=== PATIENT | female | born 1945 | race African-American/Black ===

== ENCOUNTER 2017-07-30 15:21 | Inpatient (IN) ==
[2017-07-30] MEDS ORDERED: ASPIRIN PO STA (15:28)
[2017-07-30 16:39] LABS: ALLEN TEST YES; BE 3.9 mmoll (-3.0-3.0); BLOOD TYPE ARTERIAL; DRAW SITE R BRACHIAL; METHB 0.6 % (0.0-1.5); O2(CT) 11.7 mL/dL (15.0-23.0); PCO2(98.6) 36 mmHg (35-45); PO2(98.6) 75 mmHg (60-100); SAMPLE BLOOD; SAO2 97.7 % (95.0-100.0); THB 8.7 g/dL (11.5-17.4); pH(98.6) 7.49 (7.35-7.45)
[2017-07-30 16:40] LABS: MODALITY ROOM AIR
[2017-07-30 17:36] LABS: INR 1.18; PROTIME 12.5 Seconds (9.2-11.7); PTT 28.1 Seconds (22.0-36.0)
[2017-07-30 17:52] LABS: CALCIUM 8.6 mg/dL (8.8-10.2); MAGNESIUM 1.8 mg/dL (1.5-2.7); POTASSIUM 4.8 mmol/L (3.5-5.1); TOTAL BILIRUBIN 0.95 mg/dL (0.20-1.00); TOTAL PROTEIN 6.9 g/dL (6.3-8.3)
[2017-07-30 18:06] LABS: BASO% 0.4 % (0.0-0.8); EOS# 0.02 X1000 (0.0-0.7); EOS% 0.4 % (0.0-10.0); HEMATOCRIT 25.9 % (37.0-47.0); HEMOGLOBIN 8.4 g/dL (12.0-16.0); LYMPH# 0.91 X1000 (1.2-3.4); LYMPH% 16.2 % (20.5-51.1); MANUAL DIFF NEEDED? NO; MCH 28.6 PG (27-31); MCHC 32.4 g/dL (33-37); MCV 88.1 FL (81-99); MONO# 0.54 X1000 (0.11-0.59); MONO% 9.6 % (1.7-9.3); MPV 10.8 FL (7.4-10.4); NEUT% 73.4 % (42.2-75.2); PLT 213 X1000 (130-400); RBC 2.94 XMIL (4.2-5.4)
[2017-07-30] MEDS ORDERED: LASIX IV ONE (19:22)
[2017-07-30] MEDS ORDERED: HEPARIN 25,000 UNITS/D5W 25,000 UNIT/250 ML IV.SOLN IV SCH (21:45)
[2017-07-30 21:59] LABS: URINE CULTURE NEEDED? NO; URINE MICRO REVIEW NEEDED? NO; URINE SOURCE CATH
[2017-07-30 22:01] LABS: BILIRUBIN URINE NEGATIVE (NEGATIVE); BLOOD URINE NEGATIVE (NEGATIVE); COLOR YELLOW; GLUCOSE URINE NEGATIVE (NEGATIVE); LEUKOCYTES URINE NEGATIVE (NEGATIVE); NITRITE URINE NEGATIVE (NEGATIVE); PROTEIN URINE NEGATIVE (NEGATIVE); TURBIDITY URINE HAZY (CLEAR); UROBILINOGEN URINE NORMAL (NORMAL)
[2017-07-30 22:02] LABS: UR EPITHELIAL CELLS <10 /HPF (<10); URINE BACTERIA NEGATIVE /HPF; URINE RBC <10 /HPF (<10); URINE WBC <10 /HPF (<10)
[2017-07-30] MEDS ORDERED: ASPIRIN PO ONE (22:20)
[2017-07-31 08:42] LABS: HEMATOCRIT 22.7 % (37.0-47.0); HEMOGLOBIN 7.4 g/dL (12.0-16.0); MCH 28.9 PG (27-31); MCHC 32.6 g/dL (33-37); MCV 88.7 FL (81-99); MPV 10.1 FL (7.4-10.4); RBC 2.56 XMIL (4.2-5.4)
[2017-07-31] MEDS ORDERED: LASIX IV SCH (09:00)
[2017-07-31 09:04] LABS: ALBUMIN 2.9 g/dL (3.5-5.0); CALCIUM 8.3 mg/dL (8.8-10.2)
[2017-07-31 09:32] LABS: IRON SATURATION 24 %; TIBC 156 ug/dL; TOTAL IRON 38 ug/dL (49-151); UNBOUND IRON 118 ug/dL (112-346)
[2017-07-31 09:36] LABS: RETIC% 2.62 % (0.8-2.1); RETIC-HE 29.7 PG (28.2-36.6)
[2017-07-31] MEDS: SODIUM CHLORIDE 0.9% INJ SCH (10:50)
[2017-07-31] MEDS: PROTONIX IV SCH (10:50)
[2017-07-31 12:08] LABS: FERRITIN 2680 ng/mL (13-150)
[2017-07-31 12:44] LABS: INR 1.16; PROTIME 12.3 Seconds (9.2-11.7)
[2017-07-31 12:46] LABS: PTT 69.5 Seconds (22.0-36.0)
[2017-07-31 13:56] LABS: UR CREAT RANDOM 128.5 mg/dL (11-20); UR PROT RANDOM 22.2 mg/dL
[2017-07-31] MEDS ORDERED: NORCO-5 PO PRN (14:15)
[2017-07-31] MEDS ORDERED: DULCOLAX PR ONE (14:16)
[2017-07-31] MEDS ORDERED: LACTULOSE PO ONE (14:17)
[2017-07-31] MEDS: LASIX 100 MG in NS 90 ML IV SCH (14:42)
[2017-07-31] MEDS: DILAUDID IV PRN ×2 (16:24→20:13)
[2017-07-31] MEDS: LACTULOSE PO SCH (20:11)
[2017-07-31] MEDS ORDERED: NS 500 ML ONE (21:53)
[2017-07-31] MEDS: ZOFRAN IV PRN (23:16)
[2017-08-01 05:21] LABS: HEMATOCRIT 25.4 % (37.0-47.0); HEMOGLOBIN 8.2 g/dL (12.0-16.0); MCH 29.5 PG (27-31); MCHC 32.3 g/dL (33-37); MCV 91.4 FL (81-99); MPV 10.9 FL (7.4-10.4); RBC 2.78 XMIL (4.2-5.4)
[2017-08-01 05:41] LABS: FREE T4 1.53 ng/dL (0.93-1.70)
[2017-08-01 05:42] LABS: ALBUMIN 3.2 g/dL (3.5-5.0); CALCIUM 8.4 mg/dL (8.8-10.2); POTASSIUM 5.8 mmol/L (3.5-5.1)
[2017-08-01] MEDS: DILAUDID IV PRN (06:16)
[2017-08-01] MEDS: ZOFRAN IV PRN (06:19)
[2017-08-01] MEDS ORDERED: XANAX PO SCH (09:00)
[2017-08-01] MEDS ORDERED: VITAMIN D PO SCH (09:00)
[2017-08-01 09:38] LABS: INR 1.13; PTT 25.2 Seconds (22.0-36.0)
[2017-08-01] MEDS: LACTULOSE PO SCH (11:09)
[2017-08-01] MEDS ORDERED: ALBUMIN 25% IV ONE (11:21)
[2017-08-01] MEDS: PROTONIX IV SCH (13:23)
[2017-08-01] MEDS: LASIX 100 MG in NS 90 ML IV SCH (13:23)
[2017-08-01 14:00] LABS: CALCIUM 8.2 mg/dL (8.8-10.2); POTASSIUM 5.6 mmol/L (3.5-5.1)
[2017-08-01] MEDS: DOBUTAMINE 500/D5W 500 MG/250 ML IV.SOLN IV SCH (14:43)
[2017-08-02 05:25] LABS: HEMATOCRIT 18.7 % (37.0-47.0); MCH 29.1 PG (27-31); MCHC 32.1 g/dL (33-37); MCV 90.8 FL (81-99); MPV 10.3 FL (7.4-10.4); RBC 2.06 XMIL (4.2-5.4)
[2017-08-02 05:40] LABS: ALBUMIN 3.1 g/dL (3.5-5.0); CALCIUM 7.6 mg/dL (8.8-10.2); DIRECT BILIRUBIN 0.3 mg/dL (0.00-0.20); POTASSIUM 4.5 mmol/L (3.5-5.1); TOTAL BILIRUBIN 0.87 mg/dL (0.20-1.00); TOTAL PROTEIN 5.9 g/dL (6.3-8.3)
[2017-08-02] MEDS: PROTONIX IV SCH (09:19)
[2017-08-02] MEDS: SODIUM CHLORIDE 0.9% INJ SCH (09:19)
[2017-08-02] MEDS ORDERED: NS 500 ML ONE (12:00)
[2017-08-02] MEDS: DOBUTAMINE 500/D5W 500 MG/250 ML IV.SOLN IV SCH (18:30)
[2017-08-03] MEDS: XANAX PO PRN ×2 (02:55→20:55)
[2017-08-03 05:18] LABS: HEMATOCRIT 22.9 % (37.0-47.0); HEMOGLOBIN 7.6 g/dL (12.0-16.0); MCH 29.9 PG (27-31); MCHC 33.2 g/dL (33-37); MCV 90.2 FL (81-99); MPV 9.7 FL (7.4-10.4); RBC 2.54 XMIL (4.2-5.4)
[2017-08-03 05:33] LABS: ALBUMIN 2.9 g/dL (3.5-5.0); CALCIUM 7.8 mg/dL (8.8-10.2); POTASSIUM 4.3 mmol/L (3.5-5.1)
[2017-08-03] MEDS: PROTONIX IV SCH (08:26)
[2017-08-03] MEDS: DOBUTAMINE 500/D5W 500 MG/250 ML IV.SOLN IV SCH (15:21)
[2017-08-03] MEDS: LOVENOX SUBQ SCH (20:55)
[2017-08-04 05:06] LABS: MANUAL DIFF NEEDED? NO
[2017-08-04 05:24] LABS: BASO% 0.2 % (0.0-0.8); EOS# 0.05 X1000 (0.0-0.7); EOS% 0.8 % (0.0-10.0); HEMATOCRIT 24.7 % (37.0-47.0); HEMOGLOBIN 7.9 g/dL (12.0-16.0); LYMPH# 0.94 X1000 (1.2-3.4); LYMPH% 15.2 % (20.5-51.1); MCH 28.9 PG (27-31); MCV 90.5 FL (81-99); MONO% 12.9 % (1.7-9.3); MPV 9.8 FL (7.4-10.4); NEUT% 70.9 % (42.2-75.2); PLT 268 X1000 (130-400); RBC 2.73 XMIL (4.2-5.4)
[2017-08-04 05:39] LABS: ALBUMIN 2.9 g/dL (3.5-5.0); CALCIUM 7.7 mg/dL (8.8-10.2); POTASSIUM 4.2 mmol/L (3.5-5.1)
[2017-08-04] MEDS: SODIUM CHLORIDE 0.9% INJ SCH (09:25)
[2017-08-04] MEDS: PROTONIX IV SCH (09:25)
[2017-08-04] MEDS: MIRALAX PO SCH ×2 (14:04→20:41)
[2017-08-04] MEDS: DULCOLAX PR SCH ×2 (20:41→20:45)
[2017-08-04] MEDS: LOVENOX SUBQ SCH (20:41)
[2017-08-05 05:18] LABS: MANUAL DIFF NEEDED? NO
[2017-08-05 05:37] LABS: BASO% 0.2 % (0.0-0.8); EOS# 0.08 X1000 (0.0-0.7); EOS% 1.3 % (0.0-10.0); HEMATOCRIT 26.4 % (37.0-47.0); HEMOGLOBIN 8.3 g/dL (12.0-16.0); IMM GRAN# 0.02 X1000 (0.0-0.04); IMM GRAN% 0.3 % (0.0-0.5); LYMPH# 0.66 X1000 (1.2-3.4); MCH 28.8 PG (27-31); MCHC 31.4 g/dL (33-37); MCV 91.7 FL (81-99); MONO# 0.54 X1000 (0.11-0.59); NEUT% 78.2 % (42.2-75.2); PLT 288 X1000 (130-400); RBC 2.88 XMIL (4.2-5.4)
[2017-08-05 05:42] LABS: CALCIUM 8.4 mg/dL (8.8-10.2); POTASSIUM 4.4 mmol/L (3.5-5.1)
[2017-08-05] MEDS: PROTONIX IV SCH (09:13)
[2017-08-05] MEDS: LACTULOSE PO SCH ×2 (09:15→21:53)
[2017-08-05] MEDS: MIRALAX PO SCH ×2 (09:15→21:53)
[2017-08-05] MEDS: LOVENOX SUBQ SCH (21:53)
[2017-08-05] MEDS: DULCOLAX PR SCH (21:53)
[2017-08-06 06:31] LABS: HEMATOCRIT 26.7 % (37.0-47.0); HEMOGLOBIN 8.3 g/dL (12.0-16.0); MCH 29.5 PG (27-31); MCHC 31.1 g/dL (33-37); MPV 9.9 FL (7.4-10.4); RBC 2.81 XMIL (4.2-5.4)
[2017-08-06 06:37] LABS: CALCIUM 7.7 mg/dL (8.8-10.2); POTASSIUM 4.5 mmol/L (3.5-5.1)
[2017-08-06] MEDS: SODIUM CHLORIDE 0.9% INJ SCH (08:24)
[2017-08-06] MEDS: PROTONIX IV SCH (08:24)
[2017-08-06] MEDS: LACTULOSE PO SCH (08:25)
[2017-08-06] MEDS: MIRALAX PO SCH (08:26)
[2017-08-06] MEDS: LOVENOX SUBQ SCH (22:57)
[2017-08-06] MEDS: DULCOLAX PR SCH (22:58)
[2017-08-07 06:21] LABS: HEMATOCRIT 28.4 % (37.0-47.0); HEMOGLOBIN 8.9 g/dL (12.0-16.0); MCH 29.9 PG (27-31); MCHC 31.3 g/dL (33-37); MCV 95.3 FL (81-99); MPV 9.8 FL (7.4-10.4); RBC 2.98 XMIL (4.2-5.4)
[2017-08-07 06:34] LABS: CALCIUM 8.7 mg/dL (8.8-10.2); POTASSIUM 4.3 mmol/L (3.5-5.1)
[2017-08-07] MEDS: PROTONIX IV SCH (09:15)
[2017-08-07 19:31] VITALS: BP 112/75
[2017-08-08] MEDS ORDERED: TOPROL XL PO SCH (09:00)
[2017-08-08] MEDS ORDERED: LASIX PO SCH (09:00)
== END 2017-08-07 20:26 | disposition home health service (06) ==
LOC: ED 15:21 → 3N 22:42 → SUATTDRO 22:42 → 3N 23:07 → 3S 07-31 13:46 → 4N 08-05 13:27
PROVIDERS: ATTEND Internal Medicine